=== PATIENT | male | born 1970 | race Caucasian/White ===

== ENCOUNTER 2020-10-02 20:33 | Inpatient (IN) | payer MEDICAID, OTHER ==
[~2020-10-02] VITALS: Ht 152.4 cm; Wt 65.8 kg
[2020-10-02] MEDS ORDERED: MORPHINE SULFATE 4 MG/ML CPJ (NOT FOR IM USE) IV STA (23:29)
[2020-10-02] MEDS ORDERED: ONDANSETRON HCL 4MG/2ML INJ IV STA (23:29)
[2020-10-02] MEDS ORDERED: PIPERACILLIN/TAZ 3.375G PREMIX 50 ML IV ONE (23:30)
[2020-10-02] MEDS ORDERED: VANCOMYCIN 1 G PREMIX 200 ML IV ONE (23:30)
[2020-10-02 23:57] LABS: BASOPHILS % 1.2 % (0.0-2.0); EOSINOPHILS % 0.2 % (0.0-5.0); HEMATOCRIT. 36.4 % (42.0-52.0); HEMOGLOBIN. 11.8 g/dL (14.0-18.0); LYMPHOCYTES % 33.8 % (20.0-50.0); MEAN CORPUSCULAR HEMOGLOBIN 29.1 pg (28.0-32.0); MEAN CORPUSCULAR VOLUME 90.1 fL (80.0-94.0); MEAN PLATELET VOLUME 9.1 fl (7.4-10.4); MONOCYTES % 1.9 % (2.0-8.0); NEUTROPHILS % 62.9 % (40.0-76.0); PLATELET 168 x1000/uL (130-400); RED BLOOD CELL COUNT 4.04 mill/uL (4.7-6.1); RED CELL DISTRIBUTION WIDTH 19.6 % (11.6-14.6)
[2020-10-03 00:07] LABS: CHLORIDE 97 mEq/L (98-107)
[2020-10-03 00:09] LABS: INR 1.1; PROTHROMBIN TIME 11.3 sec (9.6-11.0)
[2020-10-03] MEDS ORDERED: MORPHINE SULFATE 4 MG/ML CPJ (NOT FOR IM USE) IV ONE (03:45)
[2020-10-03] MEDS ORDERED: ONDANSETRON HCL 4MG/2ML INJ IV PRN (07:15)
[2020-10-03] MEDS ORDERED: VANCOMYCIN 1 G PREMIX 200 ML IV SCH (07:15)
[2020-10-03] MEDS ORDERED: MAGNESIUM/ALUMINUM HYDROXIDE/SIMETHICONE 30ML UDC PO PRN (07:15)
[2020-10-03] MEDS ORDERED: LEVOFLOXACIN 500MG PREMIX 100 ML IV SCH ×3 (07:15→12:00)
[2020-10-03] MEDS ORDERED: ENOXAPARIN 40MG/0.4ML SYR SUBCUT SCH (07:15)
[2020-10-03] MEDS ORDERED: CLONIDINE 0.1MG TABLET PO PRN (07:15)
[2020-10-03 10:30] VITALS: BP 117/69
[2020-10-03 11:22] VITALS: BP 117/69
[2020-10-03] MEDS ORDERED: POTASSIUM CHLORIDE 20MEQ TABLET SR PO NR (11:30)
[2020-10-03 12:00] VITALS: BP 91/59
[2020-10-03] MEDS: ENOXAPARIN 30MG/0.3ML SYR SUBCUT SCH (12:57)
[2020-10-03] MEDS: HYDROCODONE/APAP 7.5/325MG 1 TAB TABLET PO PRN ×2 (12:58→18:54)
[2020-10-03 16:00] VITALS: BP 102/62
[2020-10-03 17:09] LABS: CREATINE KINASE MB FRACTION 2.4 ng/mL (0.5-3.6)
[2020-10-03 20:00] VITALS: BP 118/57
[2020-10-03] MEDS: HYDROCODONE/ACETAMINOPHEN 10/325MG TABLET PO PRN (22:56)
[2020-10-04] VITALS: BP 101/72
[2020-10-04] MEDS ORDERED: DIPHENHYDRAMINE 50MG CAPSULE PO NR (01:00)
[2020-10-04 01:20] LABS: CREATINE KINASE MB FRACTION 2.8 ng/mL (0.5-3.6)
[2020-10-04 04:00] VITALS: BP 104/56
[2020-10-04 06:19] LABS: BASOPHILS % 0.4 % (0.0-2.0); EOSINOPHILS % 0.4 % (0.0-5.0); HEMATOCRIT. 34.8 % (42.0-52.0); HEMOGLOBIN. 10.7 g/dL (14.0-18.0); LYMPHOCYTES % 38.3 % (20.0-50.0); MEAN CORPUSCULAR VOLUME 93.8 fL (80.0-94.0); MONOCYTES % 2.4 % (2.0-8.0); NEUTROPHILS % 58.5 % (40.0-76.0); PLATELET 135 x1000/uL (130-400); RED BLOOD CELL COUNT 3.71 mill/uL (4.7-6.1); RED CELL DISTRIBUTION WIDTH 19.9 % (11.6-14.6)
[2020-10-04 08:00] VITALS: BP 120/66
[2020-10-04] MEDS: ENOXAPARIN 30MG/0.3ML SYR SUBCUT SCH (09:50)
[2020-10-04] MEDS: HYDROCODONE/ACETAMINOPHEN 10/325MG TABLET PO PRN ×2 (10:00→20:04)
[2020-10-04 12:30] VITALS: BP 135/72
[2020-10-04] MEDS ORDERED: IOHEXOL-350 100 ML BOTTLE ONE (14:30)
[2020-10-04 15:43] LABS: HEPATITIS B SURFACE ANTIGEN NEGATIVE
[2020-10-04 16:00] VITALS: BP 139/74
[2020-10-04 16:13] LABS: HEPATITIS A AB IGM NEGATIVE (NEGATIVE)
[2020-10-04 20:00] VITALS: BP 99/61
[2020-10-04] MEDS ORDERED: VANCOMYCIN 500 MG PREMIX 100 ML IV SCH (20:00)
[2020-10-05] VITALS: BP 114/77
[2020-10-05] MEDS: HYDROCODONE/ACETAMINOPHEN 10/325MG TABLET PO PRN ×2 (00:07→09:25)
[2020-10-05 04:00] VITALS: BP 118/86
[2020-10-05 06:32] LABS: HEMATOCRIT. 35.3 % (42.0-52.0); MEAN CORPUSCULAR HEMOGLOBIN 29.1 pg (28.0-32.0); MEAN CORPUSCULAR VOLUME 93.4 fL (80.0-94.0); PLATELET 142 x1000/uL (130-400); RED BLOOD CELL COUNT 3.78 mill/uL (4.7-6.1); RED CELL DISTRIBUTION WIDTH 20.1 % (11.6-14.6)
[2020-10-05 07:20] LABS: PHOSPHORUS 5.6 mg/dL (2.5-4.9)
[2020-10-05 07:48] VITALS: BP 121/82
[2020-10-05] MEDS: ENOXAPARIN 30MG/0.3ML SYR SUBCUT SCH (09:07)
[2020-10-05] MEDS ORDERED: FENTANYL CITRATE/PF 50MCG/ML 5ML VIAL ONE (10:25)
[2020-10-05] MEDS ORDERED: MIDAZOLAM HCL 5 MG/5 ML VIAL ONE (10:28)
[2020-10-05] MEDS ORDERED: IODIXANOL 320MG/ML 100 ML BOTTLE IV ONE (10:29)
[2020-10-05] MEDS ORDERED: IOHEXOL-300 100 ML BOTTLE ONE (10:29)
[2020-10-05] MEDS ORDERED: LIDOCAINE HCL 1% 20ML VIAL (Pyxis) INJ ONE (10:29)
[2020-10-05] MEDS ORDERED: LEVOFLOXACIN 250MG PREMIX 50 ML IV SCH ×3 (11:00→13:00)
[2020-10-05] MEDS ORDERED: ASPI-986 MT (13:52)
[2020-10-05 16:00] VITALS: BP 115/74
[2020-10-05 16:26] VITALS: BP 121/68
[2020-10-05 17:27] LABS: PLATELET ESTIMATE NORMAL
== END 2020-10-05 18:40 | disposition home or self-care (01) | DRG 197 ==
LOC: ER 20:33 → 8WST 10-03 03:22 → EDBEDREQDT 10-03 03:32 → EDBEDREQ 10-03 03:32 → EDBEDREQTM 10-03 03:32 → ENRESERV 10-03 08:12
PROVIDERS: ADMIT Family Medicine; ATTEND Family Medicine
PROC: 5A1D70Z Performance of Urinary Filtration, Intermittent, Less than 6 Hours Per Day (ICD-10-PCS; 2020-10-04)
PROC: B41G1ZZ Fluoroscopy of Left Lower Extremity Arteries using Low Osmolar Contrast (ICD-10-PCS; principal; 2020-10-05)
DX: E11.51 Type 2 diabetes mellitus with diabetic peripheral angiopathy without gangrene (principal); J96.90 Respiratory failure, unspecified, unspecified whether with hypoxia or hypercapnia; E11.22 Type 2 diabetes mellitus with diabetic chronic kidney disease; D64.9 Anemia, unspecified; N18.6 End stage renal disease; N25.81 Secondary hyperparathyroidism of renal origin; I70.202 Unspecified atherosclerosis of native arteries of extremities, left leg; I12.0 Hypertensive chronic kidney disease with stage 5 chronic kidney disease or end stage renal disease; E11.621 Type 2 diabetes mellitus with foot ulcer; L97.429 Non-pressure chronic ulcer of left heel and midfoot with unspecified severity; F17.200 Nicotine dependence, unspecified, uncomplicated; Z20.822 Contact with and (suspected) exposure to COVID-19; Z82.49 Family history of ischemic heart disease and other diseases of the circulatory system; Z99.2 Dependence on renal dialysis
CPT/HCPCS: 36246; 36415; 71045; 73630; 75635; 75710; 80048; 80053; 80061; 80202; 82550; 82553; 83036; 83735; 84100; 84484; 85025; 86705; 86709; 86803; 87340; 87426; 93005; 93923; 93970; 99285; C1760; C1769; C1893; J1644; J1650; J1956; J2250; J2270; J2405; J2543; J3010; J3370; J3490; Q0163; Q9967